=== PATIENT | male | born 1990 | race Caucasian/White ===

== ENCOUNTER → 2017-05-13 | Outpatient (CLI) | payer OTHER, MEDICAID ==
[2016-05-08 11:46] VITALS: BMI 22.4
[~2017-05-13] MED LIST: ABILIF5PT PO; CHOL10005 PO; DIPH-740 PO; FLUO-202 PO; HYDR25CA13 PO; HYDR50CA48 PO; IBUP800T37 PO; LOR5/325 PO; MULT-1379 PO; OLAN10TA21 PO; OLAN10TA25 PO; OLAN15TA19 PO; OMEG-23 PO; OXCA150T45 PO; OXCA150T47 PO; OXCA300T44 PO; PRED50TA22 PO; RISP1TAB79 PO; RISP2TAB70 PO; RISP3TAB55 PO; SERT-1 PO; SERT-181 PO; TOPI-120 PO; TOPI-28 PO; TOPI200T61 PO
[2017-05-13 12:32] LABS: LDL CHOLESTEROL 76 mg/dl
== END ==
LOC: LAB 11:55
PROVIDERS: ATTEND Psychiatry & Neurology Psychiatry
DX: Z51.81 Encounter for therapeutic drug level monitoring (principal); Z79.899 Other long term (current) drug therapy
CPT/HCPCS: 36415; 82040; 82247; 82306; 82310; 82374; 82435; 82465; 82565; 82947; 83036; 83718; 84075; 84132; 84155; 84295; 84450; 84460; 84478; 84520

== ENCOUNTER 2017-07-07 16:16 | Emergency (ER) | payer OTHER, MEDICAID ==
[2016-05-08 11:46] VITALS: Wt 99.8 kg
[2017-07-07 16:30] VITALS: BP 136/93
[2017-07-07] MEDS ORDERED: PARO-243 PO (16:37)
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
[2017-07-07 16:57] LABS: PLATELET COUNT, AUTOMATED 260 K/uL (150-450)
[2017-07-07] MEDS ORDERED: OLANZapine ZYDIS ODT 5MG TABDP PO ONE (17:00)
[2017-07-07] MEDS ORDERED: cloNIDine HCL 0.1 MG TAB PO ONE (17:15)
[2017-07-08] MEDS ORDERED: TOPI50TA92 PO (11:09)
[2017-07-08] MEDS ORDERED: [UNRECOGNIZED DRUG - CODE] PO (11:09)
[2017-07-08] MEDS ORDERED: CHOL10005 PO (11:09)
== END 2017-07-07 18:17 ==
LOC: ER 16:24
DX: F32.9 Major depressive disorder, single episode, unspecified (principal); R45.851 Suicidal ideations; F25.1 Schizoaffective disorder, depressive type; R44.0 Auditory hallucinations
CPT/HCPCS: 36415; 80183; 80201; 80305; 80320; 80329; 81001; 82040; 82247; 82310; 82374; 82435; 82565; 82947; 83735; 84075; 84132; 84155; 84295; 84443; 84450; 84460; 84520; 85025; 99285

== ENCOUNTER 2017-07-07 18:08 | Inpatient (IN) | payer OTHER, MEDICAID ==
[2016-05-08 11:46] VITALS: Ht 185.4 cm; Wt 113.4 kg
[~2017-07-07] VITALS: Ht 185.4 cm; Wt 113.4 kg
[~2017-07-07 18:08] MED LIST changes: +PARO-243 PO
[2017-07-07] MEDS ORDERED: MAG HYD/AL HYD/SIMETH 30ML UDC PO PRN (19:15)
[2017-07-07] MEDS: OLANZapine 5 MG TAB PO SCH (20:58)
[2017-07-07] MEDS: OXcarbazepine 300 MG TAB PO SCH (20:58)
[2017-07-07] MEDS: PARoxetine HCL 20 MG TAB PO SCH (20:58)
[2017-07-08 06:18] VITALS: BP 94/58
[2017-07-08] MEDS: MULTIVITAMINS PO SCH (08:16)
[2017-07-08] MEDS: CHOLECALCIFEROL 1000 UNIT TAB PO SCH (08:16)
[2017-07-08] MEDS: TOPIRAMATE 100 MG TAB PO SCH (08:17)
[2017-07-08] MEDS: OMEGA-3 500 MG CAP PO SCH (08:17)
[2017-07-08 10:22] VITALS: BP 126/67
[2017-07-08] MEDS ORDERED: TOPI50TA92 PO (11:09)
[2017-07-08] MEDS ORDERED: CHOL10005 PO (11:09)
[2017-07-08] MEDS ORDERED: [UNRECOGNIZED DRUG - CODE] PO (11:09)
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
[2017-07-08 19:01] VITALS: BP 132/88
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
[2017-07-08] MEDS: OXcarbazepine 300 MG TAB PO SCH (20:57)
[2017-07-08] MEDS: PARoxetine HCL 20 MG TAB PO SCH (20:57)
[2017-07-08] MEDS: OLANZapine 5 MG TAB PO SCH (20:57)
[2017-07-09 05:51] VITALS: BP 109/64
[2017-07-09] MEDS: MULTIVITAMINS PO SCH (08:23)
[2017-07-09] MEDS: OMEGA-3 500 MG CAP PO SCH (08:23)
[2017-07-09] MEDS: CHOLECALCIFEROL 1000 UNIT TAB PO SCH (08:24)
[2017-07-09] MEDS: TOPIRAMATE 100 MG TAB PO SCH (08:24)
[2017-07-09 09:05] VITALS: BP 108/72
--- NOTE | 2017-07-09 10:47 | BHS Progress Note ---
[facility] - Subjective Progress Notes Subjective Patient desires to discharge to home, notably difficulty and resistant to getting out of bed, and patient does not want to participate in care. Patient is in need of further residential care, as he is further decompensating at home , and having auditory hallucinations directing him to kill his child and . Patient having thoughts of harm to self as well. Will have hearing today for 10 day extension. Will continue same medications for now. Suicidal Ideation: Resolving Homicidal Ideation: Resolving BHS - Objective Physical Exam Vital Signs Vital Signs Date Time Temp Pulse Resp B/P (MAP) Pulse Ox O2 Delivery O2 Flow Rate FiO2 07/09/17 09:05 98.2 97 108/72 (84) 93 Room Air 07/09/17 05:51 15 Muscle Strength and Tone: WNL Gait and Station: Steady [facility] Medications Reviewed: Side Effects, Benefits of Medication, Risks Allergies Reviewed: Yes Mental Status Exam General Appearance: Good Eye Contact, Cooperative, Polite, No Psychomotor Agitation, Psychomotor Retardation, Bizarre Mannerisms Speech: Clear, Normal Rate, No Slurred, No Rambling, No Inappropriate Mood: Dysthmic/Depressed (thoughts of self harm) Affect: No Full and Appropriate, Neutral, Flat Thought Process: Goal Directed (wants to go home. ), No Loose Associations, No Flight of Ideas Thought Content: Suicidal Ideation (voices thoughts of hurting self at times. ) , Homicidal Ideation (Thoughts of hurting and baby yesterday with therapist.), Auditory Halllucinations (ongoing), No Thought Broadcasting, No Ideas of Reference, No Obsessions, No Compulsions Cognition: Alert & Oriented-Person, Alert & Oriented-Place, Alert & Oriented- Time, No Sulmh-Tykplcuy-Tuinpecxf (partially) Memory: Immediate, Recent, Remote Intelligence: Average Insight Judgment: Poor (worsening over sequence of admissions. ) [facility] Assessment and Plan Scak-ri-Ciks Encounter Date: Jul 09, 2017 Aokv-[id number] Encounter Time: 10:45 [facility] Plan: Necessary Precautions, Individual/Group Therapy, Admin/Titrate Meds, Educate Patient Tobacco Medications: Not Appropriate Condition Multpiple Antipsychotics Used: No Problems: (1) Autism spectrum disorder Status: Chronic (2) Schizoaffective disorder, depressive type Status: Chronic Condition 1. continue treatment. 2. hearing today. 3. no medication changes. 4. patient in need of treatment outside of his home. PENNY JOHN MD Jul 09, 2017 10:47
[2017-07-09] MEDS: OXcarbazepine 300 MG TAB PO SCH (22:11)
[2017-07-09] MEDS: OLANZapine 5 MG TAB PO SCH (22:11)
[2017-07-09] MEDS: PARoxetine HCL 20 MG TAB PO SCH (22:11)
[2017-07-10] MEDS: MULTIVITAMINS PO SCH (08:32)
[2017-07-10] MEDS: CHOLECALCIFEROL 1000 UNIT TAB PO SCH (08:32)
[2017-07-10] MEDS: TOPIRAMATE 100 MG TAB PO SCH (08:33)
[2017-07-10] MEDS: OMEGA-3 500 MG CAP PO SCH (08:33)
--- NOTE | 2017-07-10 09:57 | BHS Progress Note ---
[facility] - Subjective Progress Notes Subjective Patient cooperative today, interacting well with his Father in law on the phone , will continue same medications today, and start manager terminal planning after discharge, outside of current home environment. Patient denies any psychiatric concerns, but continues to regress, patient noted to be vomiting on dinner plate, without making an effort to move, or help himself, also notably patient was noted to have soiled his pants. Will continue to encourage growth and development, and avoidance of the sick role. No other concerns. Suicidal Ideation: Resolving Homicidal Ideation: None [facility] - Objective Physical Exam Vital Signs Vital Signs Date Time Temp Pulse Resp B/P (MAP) Pulse Ox O2 Delivery O2 Flow Rate FiO2 07/09/17 09:05 98.2 97 108/72 (84) 93 Room Air 07/09/17 05:51 15 Hematology Test 07/10/17 05:57 Triglycerides Level 239 mg/dl (0-250) Cholesterol Level 138 mg/dl (75-200) LDL Cholesterol 66 mg/dl VLDL Cholesterol 48 mg/dl HDL Cholesterol 24 mg/dl Percent HDL Cholesterol 17.0 % Cholesterol Ratio (LDL/HDL) 2.75 Cholesterol/HDL Ratio 5.8 Chemistry Test 07/10/17 05:57 Triglycerides Level 239 mg/dl (0-250) Cholesterol Level 138 mg/dl (75-200) LDL Cholesterol 66 mg/dl VLDL Cholesterol 48 mg/dl HDL Cholesterol 24 mg/dl Percent HDL Cholesterol 17.0 % Cholesterol Ratio (LDL/HDL) 2.75 Cholesterol/HDL Ratio 5.8 Muscle Strength and Tone: WNL Gait and Station: Steady [facility] Medications Reviewed: Side Effects, Benefits of Medication, Risks Allergies Reviewed: Yes Mental Status Exam General Appearance: Good Eye Contact, Cooperative, Polite, No Psychomotor Agitation, Psychomotor Retardation, Bizarre Mannerisms (stare) Speech: Clear, Normal Rate, No Slurred, No Rambling, No Inappropriate Mood: Dysthmic/Depressed (thoughts of self harm) Affect: No Full and Appropriate, Neutral, Flat Thought Process: Goal Directed (wants to go home. ), No Loose Associations, No Flight of Ideas Thought Content: Suicidal Ideation (voices thoughts of hurting self at times. ) , Homicidal Ideation (Thoughts of hurting and baby yesterday with therapist.), Auditory Halllucinations (ongoing), No Thought Broadcasting, No Ideas of Reference, No Obsessions, No Compulsions Cognition: Alert & Oriented-Person, Alert & Oriented-Place, Alert & Oriented- Time, No Kvsho-Qkqjbdoi-Djkwmqeef (partially) Memory: Immediate, Recent, Remote Intelligence: Average Insight Judgment: Poor (worsening over sequence of admissions. ) [facility] Assessment and Plan Eplj-rv-Xibc Encounter Date: Jul 10, 2017 Veza-ds-Nrdn Encounter Time: 09:40 [facility] Plan: Necessary Precautions, Individual/Group Therapy, Admin/Titrate Meds, Educate Patient Tobacco Medications: Not Appropriate Condition Multpiple Antipsychotics Used: No Problems: (1) Autism spectrum disorder Status: Chronic (2) Schizoaffective disorder, depressive type Status: Chronic Condition 1. no medication changes. 2. look into manager terminal treatment plans, away from current home environment. PENNY JOHN MD Jul 10, 2017 09:57
[2017-07-10 13:00] VITALS: BP 142/88
[2017-07-10 20:22] VITALS: BP 127/77
[2017-07-10] MEDS: OXcarbazepine 300 MG TAB PO SCH (21:48)
[2017-07-10] MEDS: OLANZapine 5 MG TAB PO SCH (21:48)
[2017-07-10] MEDS: PARoxetine HCL 20 MG TAB PO SCH (21:48)
[2017-07-11 06:00] VITALS: BP 103/60
[2017-07-11 07:00] VITALS: BP 103/60
[2017-07-11] MEDS: MULTIVITAMINS PO SCH (08:23)
[2017-07-11] MEDS: OMEGA-3 500 MG CAP PO SCH (08:23)
[2017-07-11] MEDS: CHOLECALCIFEROL 1000 UNIT TAB PO SCH (08:23)
[2017-07-11] MEDS: TOPIRAMATE 100 MG TAB PO SCH (08:23)
--- NOTE | 2017-07-11 10:16 | BHS Progress Note ---
BHS - Subjective Progress Notes Subjective "I was having a bad week, the voices were causing me stress." Last AH "a few days before I was admitted" states were reported to therapist who recommended admission Denies auditory/visual hallucinations, denies racing thoughts Denies depression, anxiety or anger Patient cooperative today, Will continue current medications Denies further psychiatric concerns Current Medications Medications (Trade) Dose Ordered Sig/Eugenio Route PRN Reason Start Time Stop Time Status Last Admin Dose Admin Al Hydrox/Mg Hydrox/Simethicone (Maalox(*) 30 ml Udcup (Or Equiv)) 30 ml Q4H PRN PO DYSPEPSIA 07/07/17 19:15 08/06/17 19:14 Multivitamins (Thera-M Enhanced Tab (Or Equiv)) 1 each QDAY PO 07/08/17 09:00 08/07/17 08:59 07/11/17 08:23 Olanzapine (zyPREXA (OR EQUIV)) 7.5 mg QHS PO 07/07/17 21:00 08/06/17 20:59 07/10/17 21:48 Paroxetine HCl (Paxil (Or Equiv)) 20 mg QHS PO 07/07/17 21:00 08/06/17 20:59 07/10/17 21:48 Oxcarbazepine (Trileptal 300 Mg Tab (Or Equiv)) 300 mg QHS PO 07/07/17 21:00 08/06/17 20:59 07/10/17 21:48 Topiramate (Topamax 100 Mg Tab (Or Equiv)) 150 mg QDAY PO 07/08/17 09:00 07/11/17 10:19 DC 07/11/17 08:23 Cholecalciferol (Vitamin D3 1000 Unit Tab) 4,000 unit QDAY PO 07/08/17 09:00 08/07/17 08:59 07/11/17 08:23 Ajzag-8-Bprh Ethyl Esters (Fish Oil 500 Mg Capsule) 1,000 mg QDAY PO 07/08/17 09:00 08/07/17 08:59 07/11/17 08:23 Topiramate (Topamax 100 Mg Tab (Or Equiv)) 150 mg QHS PO 07/12/17 21:00 08/07/17 08:59 Loperamide HCl (Imodium 2 Mg Cap (Or Equiv)) 2 mg PRN PRN PO DIARRHEA 07/11/17 10:20 08/10/17 10:19 Suicidal Ideation: None Homicidal Ideation: None Suicidal Ideation: None Homicidal Ideation: None [facility] - Objective Physical Exam Muscle Strength and Tone: WNL Gait and Station: Steady [facility] Medications Reviewed: Side Effects, Benefits of Medication, Risks Allergies Reviewed: Yes Mental Status Exam General Appearance: Good Eye Contact, Cooperative, Polite, No Psychomotor Agitation, No Psychomotor Retardation, No Bizarre Mannerisms (stare) Speech: Clear, Spontaneous, Normal Rate, Normal Rhythm, Normal Volume, Normal Tone, No Slurred, No Rambling, No Inappropriate Mood: Dysthmic/Depressed (thoughts of self harm), Euthymic Affect: Full and Appropriate, Calm, No Neutral, No Flat Thought Process: Goal Directed (discuss plans to live with father in law in [place] and continue follow up once there), No Loose Associations, No Flight of Ideas Thought Content: Suicidal Ideation (voices thoughts of hurting self at times. ) , Homicidal Ideation (Thoughts of hurting and baby yesterday with therapist.), Auditory Halllucinations (ongoing), No Thought Broadcasting, No Ideas of Reference, No Obsessions, No Compulsions Cognition: Alert & Oriented-Person, Alert & Oriented-Place, Alert & Oriented- Time, No Izmor-Rlffjoid-Curaqdncl (partially) Memory: Immediate, Recent, Remote Intelligence: Average Insight Judgment: Poor (worsening over sequence of admissions. ) Lab Current Medications Medications (Trade) Dose Ordered Sig/Eugenio Route PRN Reason Start Time Stop Time Status Last Admin Dose Admin Al Hydrox/Mg Hydrox/Simethicone (Maalox(*) 30 ml Udcup (Or Equiv)) 30 ml Q4H PRN PO DYSPEPSIA 07/07/17 19:15 08/06/17 19:14 Multivitamins (Thera-M Enhanced Tab (Or Equiv)) 1 each QDAY PO 07/08/17 09:00 08/07/17 08:59 07/11/17 08:23 Olanzapine (zyPREXA (OR EQUIV)) 7.5 mg QHS PO 07/07/17 21:00 08/06/17 20:59 07/10/17 21:48 Paroxetine HCl (Paxil (Or Equiv)) 20 mg QHS PO 07/07/17 21:00 08/06/17 20:59 07/10/17 21:48 Oxcarbazepine (Trileptal 300 Mg Tab (Or Equiv)) 300 mg QHS PO 07/07/17 21:00 08/06/17 20:59 07/10/17 21:48 Topiramate (Topamax 100 Mg Tab (Or Equiv)) 150 mg QDAY PO 07/08/17 09:00 08/07/17 08:59 07/11/17 08:23 Cholecalciferol (Vitamin D3 1000 Unit Tab) 4,000 unit QDAY PO 07/08/17 09:00 08/07/17 08:59 07/11/17 08:23 Zqmxt-4-Qxkn Ethyl Esters (Fish Oil 500 Mg Capsule) 1,000 mg QDAY PO 07/08/17 09:00 08/07/17 08:59 07/11/17 08:23 Vital Signs Date Time Temp Pulse Resp B/P (MAP) Pulse Ox O2 Delivery O2 Flow Rate FiO2 07/11/17 06:00 98.5 66 103/60 (74) 92 Room Air 07/10/17 13:00 16 Allergies Coded Allergies aripiprazole (Verified Allergy, Unknown, 02/04/17) asenapine (Verified Allergy, Unknown, 02/04/17) lurasidone (Verified Allergy, Unknown, 02/04/17) risperidone (Verified Allergy, Unknown, 02/04/17) fluoxetine (Verified Adverse Reaction, Mild, 02/04/17) lorazepam (Verified Adverse Reaction, Unknown, 02/04/17) S Assessment and Plan Arir-zu-Uxry Encounter Date: Jul 11, 2017 Qtef-ks-Pecl Encounter Time: 10:14 [facility] Plan: Necessary Precautions, Individual/Group Therapy, Admin/Titrate Meds, Educate Patient Tobacco Medications: Not Appropriate Condition Multpiple Antipsychotics Used: No Problems: (1) Schizoaffective disorder, depressive type Status: Chronic (2) Autism spectrum disorder Status: Chronic Condition Continue current medication and treatment Seeking appropriate discharge plan Maintain precautions TRACEE MEJIA NP Jul 11, 2017 10:16
[2017-07-11] MEDS: PARoxetine HCL 20 MG TAB PO SCH (21:37)
[2017-07-11] MEDS: OXcarbazepine 300 MG TAB PO SCH (21:37)
[2017-07-11] MEDS: OLANZapine 5 MG TAB PO SCH (21:37)
[2017-07-12 06:14] VITALS: BP 98/54
[2017-07-12] MEDS: OMEGA-3 500 MG CAP PO SCH (08:21)
[2017-07-12] MEDS: MULTIVITAMINS PO SCH (08:21)
[2017-07-12] MEDS: CHOLECALCIFEROL 1000 UNIT TAB PO SCH (08:21)
--- NOTE | 2017-07-12 09:14 | BHS Progress Note ---
[facility] - Subjective Progress Notes Subjective "I've been working on a workbook. It gives me an idea of where my emotions are. " Desires to gain employment in future, likes computers Rating depression, anxiety low Denies auditory/visual hallucinations, racing thoughts or mood swings Denies urge for self harm, suicidal or homicidal ideation Suicidal Ideation: None Homicidal Ideation: None [facility] - Objective Physical Exam Muscle Strength and Tone: WNL Gait and Station: Steady [facility] Medications Reviewed: Side Effects, Benefits of Medication, Risks Allergies Reviewed: Yes Mental Status Exam General Appearance: Good Eye Contact, Cooperative, Polite, No Psychomotor Agitation, No Psychomotor Retardation, No Bizarre Mannerisms (stare) Speech: Clear, Spontaneous, Normal Rate, Normal Rhythm, Normal Volume, Normal Tone, No Slurred, No Rambling, No Inappropriate Mood: Dysthmic/Depressed (denies thoughts of self harm), Euthymic Affect: Full and Appropriate, Calm, No Neutral, No Flat Thought Process: Goal Directed (discuss plans to live with father in law in [place] and continue follow up once there), No Loose Associations, No Flight of Ideas Thought Content: Suicidal Ideation (voices thoughts of hurting self at times. ) , Homicidal Ideation (Thoughts of hurting and baby yesterday with therapist.), Auditory Halllucinations (ongoing), No Thought Broadcasting, No Ideas of Reference, No Obsessions, No Compulsions Cognition: Alert & Oriented-Person, Alert & Oriented-Place, Alert & Oriented- Time, No Ipowc-Yivifzyt-Kxorszmhg (partially) Memory: Immediate, Recent, Remote Intelligence: Average Insight Judgment: Poor (worsening over sequence of admissions. ) Lab Vital Signs Date Time Temp Pulse Resp B/P (MAP) Pulse Ox O2 Delivery O2 Flow Rate FiO2 07/12/17 06:14 98.1 63 98/54 (69) 96 Room Air 07/11/17 07:00 18 Allergies Coded Allergies aripiprazole (Verified Allergy, Unknown, 02/04/17) asenapine (Verified Allergy, Unknown, 02/04/17) lurasidone (Verified Allergy, Unknown, 02/04/17) risperidone (Verified Allergy, Unknown, 02/04/17) fluoxetine (Verified Adverse Reaction, Mild, 02/04/17) lorazepam (Verified Adverse Reaction, Unknown, 02/04/17) [facility] Assessment and Plan Oean-kr-Pyem Encounter Date: Jul 12, 2017 Ecmi-sz-Agjf Encounter Time: 09:12 [facility] Plan: Necessary Precautions, Individual/Group Therapy, Admin/Titrate Meds, Educate Patient Tobacco Medications: Not Appropriate Condition Multpiple Antipsychotics Used: No Problems: (1) Schizoaffective disorder, depressive type Status: Chronic (2) Autism spectrum disorder Status: Chronic Condition Continue current medication and treatment Maintain precautions Treatment team 07/13/17 Taking active role in treatment TRACEE MEJIA NP Jul 12, 2017 09:14
[2017-07-12] MEDS: LOPERAMIDE HCL 2 MG CAP PO PRN ×2 (10:44→12:50)
[2017-07-12] MEDS ORDERED: TOPIRAMATE 100 MG TAB PO SCH (21:00)
[2017-07-12] MEDS: OXcarbazepine 300 MG TAB PO SCH (21:27)
[2017-07-12] MEDS: PARoxetine HCL 20 MG TAB PO SCH (21:27)
[2017-07-12] MEDS: TOPIRAMATE 100 MG TAB PO SCH (21:27)
[2017-07-12] MEDS: OLANZapine 5 MG TAB PO SCH (21:27)
[2017-07-13 06:18] VITALS: BP 121/61
[2017-07-13] MEDS: MULTIVITAMINS PO SCH (07:31)
[2017-07-13] MEDS: OMEGA-3 500 MG CAP PO SCH (07:31)
[2017-07-13] MEDS: CHOLECALCIFEROL 1000 UNIT TAB PO SCH (07:31)
--- NOTE | 2017-07-13 09:34 | BHS Progress Note ---
[facility] - Subjective Progress Notes Subjective Patient is now seemingly putting forth much effort into discharging to live with his in-laws. Patient continues to engage in manipulative behavior on the unit, but minimal overall. No self harm behaviors or aggression to others is noted on the unit. Patient no longer speaking of having voices. Father in law , and family, is aware of manipulative behaviors and is actively deciding if they are willing to have a trial of the patient residing with them for awhile. Patient is in need of a change of environment, as he continues to psychologically regress in current outpatient environment. Suicidal Ideation: None Homicidal Ideation: None [facility] - Objective Physical Exam Vital Signs Vital Signs Date Time Temp Pulse Resp B/P (MAP) Pulse Ox O2 Delivery O2 Flow Rate FiO2 07/13/17 06:18 98.8 53 15 121/61 (81) 94 Room Air Hematology Test 07/10/17 05:57 Triglycerides Level 239 mg/dl (0-250) Cholesterol Level 138 mg/dl (75-200) LDL Cholesterol 66 mg/dl VLDL Cholesterol 48 mg/dl HDL Cholesterol 24 mg/dl Percent HDL Cholesterol 17.0 % Cholesterol Ratio (LDL/HDL) 2.75 Cholesterol/HDL Ratio 5.8 Chemistry Test 07/10/17 05:57 Triglycerides Level 239 mg/dl (0-250) Cholesterol Level 138 mg/dl (75-200) LDL Cholesterol 66 mg/dl VLDL Cholesterol 48 mg/dl HDL Cholesterol 24 mg/dl Percent HDL Cholesterol 17.0 % Cholesterol Ratio (LDL/HDL) 2.75 Cholesterol/HDL Ratio 5.8 Muscle Strength and Tone: WNL Gait and Station: Steady [facility] Medications Reviewed: Side Effects, Benefits of Medication, Risks Allergies Reviewed: Yes Mental Status Exam General Appearance: Good Eye Contact, Cooperative, Polite, No Psychomotor Agitation, No Psychomotor Retardation, No Bizarre Mannerisms (stare) Speech: Clear, Spontaneous, Normal Rate, Normal Rhythm, Normal Volume, Normal Tone, No Slurred, No Rambling, No Inappropriate Mood: Euthymic Affect: Full and Appropriate, Calm, No Neutral, No Flat, No Tearful, No Anxious , No Agitated Thought Process: Goal Directed (discuss plans to live with father in law in [place] and continue follow up once there), No Loose Associations, No Flight of Ideas Thought Content: Suicidal Ideation (voices thoughts of hurting self at times. ) , Homicidal Ideation (denies today), Auditory Halllucinations (ongoing), No Thought Broadcasting, No Ideas of Reference, No Obsessions, No Compulsions Sensorium: Clear Cognition: Alert & Oriented-Person, Alert & Oriented-Place, Alert & Oriented- Time, No Jadab-Qtixpmnc-Psdqydoqk (partially) Memory: Immediate, Recent, Remote Intelligence: Average Insight Judgment: Poor (worsening over sequence of admissions. psychological regression continues) [facility] Assessment and Plan Fbik-bt-Ocxv Encounter Date: Jul 13, 2017 Bqcn-qd-Mbxb Encounter Time: 08:40 [facility] Plan: Necessary Precautions, Individual/Group Therapy, Admin/Titrate Meds, Educate Patient Tobacco Medications: Not Appropriate Condition Multpiple Antipsychotics Used: No Problems: (1) Autism spectrum disorder Status: Chronic (2) Schizoaffective disorder, depressive type Status: Chronic Condition 1. continue treatment. 2. no medication changes today. 3. look into potential discharge plans. PENNY JOHN MD Jul 13, 2017 09:34
[2017-07-13] MEDS: OLANZapine 5 MG TAB PO SCH (21:37)
[2017-07-13] MEDS: OXcarbazepine 300 MG TAB PO SCH (21:38)
[2017-07-13] MEDS: TOPIRAMATE 100 MG TAB PO SCH (21:38)
[2017-07-13] MEDS: PARoxetine HCL 20 MG TAB PO SCH (21:38)
[2017-07-14 06:18] VITALS: BP 92/56
[2017-07-14] MEDS: OMEGA-3 500 MG CAP PO SCH (08:19)
[2017-07-14] MEDS: MULTIVITAMINS PO SCH (08:21)
[2017-07-14] MEDS: CHOLECALCIFEROL 1000 UNIT TAB PO SCH (08:21)
--- NOTE | 2017-07-14 12:16 | BHS Progress Note ---
[facility] - Subjective Progress Notes Subjective Patient taking a more active role in his treatment, notably exercising some today. Patient responds to motivating influences, which are necessary to promote growth in this patient who has been regressing from previous levels of attainment for quite sometime now. Will continue to pursue plans to have patient leave current home environment for a time. These will likely include patient moving to live with father in law. Patient now denies any form of psychiatric complaint. No seizure behavior or para-suicidal behavior seen on the unit. No aggression toward staff or other patients. Suicidal Ideation: None Homicidal Ideation: None S - Objective Physical Exam Vital Signs Vital Signs Date Time Temp Pulse Resp B/P (MAP) Pulse Ox O2 Delivery O2 Flow Rate FiO2 07/14/17 06:18 98.1 54 15 92/56 (68) 93 Room Air Hematology Test 07/10/17 05:57 Triglycerides Level 239 mg/dl (0-250) Cholesterol Level 138 mg/dl (75-200) LDL Cholesterol 66 mg/dl VLDL Cholesterol 48 mg/dl HDL Cholesterol 24 mg/dl Percent HDL Cholesterol 17.0 % Cholesterol Ratio (LDL/HDL) 2.75 Cholesterol/HDL Ratio 5.8 Chemistry Test 07/10/17 05:57 Triglycerides Level 239 mg/dl (0-250) Cholesterol Level 138 mg/dl (75-200) LDL Cholesterol 66 mg/dl VLDL Cholesterol 48 mg/dl HDL Cholesterol 24 mg/dl Percent HDL Cholesterol 17.0 % Cholesterol Ratio (LDL/HDL) 2.75 Cholesterol/HDL Ratio 5.8 Muscle Strength and Tone: WNL Gait and Station: Steady [facility] Medications Reviewed: Side Effects, Benefits of Medication, Risks Allergies Reviewed: Yes Mental Status Exam General Appearance: Casual, Good Eye Contact, Cooperative, Polite, No Psychomotor Agitation, No Psychomotor Retardation, No Bizarre Mannerisms (stare) Speech: Clear, Spontaneous, Normal Rate, Normal Rhythm, Normal Volume, Normal Tone, No Slurred, No Rambling, No Inappropriate Mood: Euthymic Affect: Full and Appropriate, Calm, No Neutral, No Flat, No Tearful, No Anxious , No Agitated Thought Process: Organized, Goal Directed (discuss plans to live with father in law in [place] and continue follow up once there), No Loose Associations , No Flight of Ideas Thought Content: Suicidal Ideation (voices thoughts of hurting self at times. ) , Homicidal Ideation (denies today), Auditory Halllucinations (now denies. ), No Thought Broadcasting, No Ideas of Reference, No Obsessions, No Compulsions Sensorium: Clear Cognition: Alert & Oriented-Person, Alert & Oriented-Place, Alert & Oriented- Time, No Lhwmx-Qgaakrrb-Sqzqagbbw (partially) Memory: Immediate, Recent, Remote Intelligence: Average Insight Judgment: Poor (worsening over sequence of admissions. psychological regression continues) [facility] Assessment and Plan Qdvj-qk-Hbqy Encounter Date: Jul 14, 2017 Xdps-rc-Rhve Encounter Time: 11:30 [facility] Plan: Necessary Precautions, Individual/Group Therapy, Admin/Titrate Meds, Educate Patient Tobacco Medications: Not Appropriate Condition Multpiple Antipsychotics Used: No Problems: (1) Autism spectrum disorder Status: Chronic (2) Schizoaffective disorder, depressive type Status: Chronic Condition 1. continue treatment. 2. solidify plans for discharge, hopefully later this week. PENNY JOHN MD Jul 14, 2017 12:16
[2017-07-14] MEDS: OLANZapine 5 MG TAB PO SCH (21:03)
[2017-07-14] MEDS: PARoxetine HCL 20 MG TAB PO SCH (21:03)
[2017-07-14] MEDS: TOPIRAMATE 100 MG TAB PO SCH (21:03)
[2017-07-14] MEDS: OXcarbazepine 300 MG TAB PO SCH (21:03)
[2017-07-15 05:53] VITALS: BP 98/55
[2017-07-15] MEDS: OMEGA-3 500 MG CAP PO SCH (08:19)
[2017-07-15] MEDS: CHOLECALCIFEROL 1000 UNIT TAB PO SCH (08:19)
[2017-07-15] MEDS: MULTIVITAMINS PO SCH (08:19)
--- NOTE | 2017-07-15 11:10 | BHS Progress Note ---
[facility] - Subjective Progress Notes Subjective Patient continues to take an active role in his treatment, denies any symptoms of psychiatric concern today, will continue to plan for discharge to care of Father in law in [place]. Patient noted to be interacting well with father in Law on phone. Appetite and sleep good. Patient reports good mood and free of psychosis. Suicidal Ideation: None Homicidal Ideation: None [facility] - Objective Physical Exam Vital Signs Vital Signs Date Time Temp Pulse Resp B/P (MAP) Pulse Ox O2 Delivery O2 Flow Rate FiO2 07/15/17 05:53 98.7 52 15 98/55 (69) 95 Room Air Hematology Test 07/10/17 05:57 Triglycerides Level 239 mg/dl (0-250) Cholesterol Level 138 mg/dl (75-200) LDL Cholesterol 66 mg/dl VLDL Cholesterol 48 mg/dl HDL Cholesterol 24 mg/dl Percent HDL Cholesterol 17.0 % Cholesterol Ratio (LDL/HDL) 2.75 Cholesterol/HDL Ratio 5.8 Chemistry Test 07/10/17 05:57 Triglycerides Level 239 mg/dl (0-250) Cholesterol Level 138 mg/dl (75-200) LDL Cholesterol 66 mg/dl VLDL Cholesterol 48 mg/dl HDL Cholesterol 24 mg/dl Percent HDL Cholesterol 17.0 % Cholesterol Ratio (LDL/HDL) 2.75 Cholesterol/HDL Ratio 5.8 Muscle Strength and Tone: WNL Gait and Station: Steady [facility] Medications Reviewed: Side Effects, Benefits of Medication, Risks Allergies Reviewed: Yes Mental Status Exam General Appearance: Casual, Good Eye Contact, Cooperative, Polite, Good Interaction, No Psychomotor Agitation, No Psychomotor Retardation, No Bizarre Mannerisms (stare) Speech: Clear, Spontaneous, Normal Rate, Normal Rhythm, Normal Volume, Normal Tone, No Slurred, No Rambling, No Inappropriate Mood: Euthymic Affect: Full and Appropriate, Calm, No Neutral, No Flat, No Tearful, No Anxious , No Agitated Thought Process: Organized, Goal Directed (discuss plans to live with father in law in [place] and continue follow up once there), No Loose Associations , No Flight of Ideas Thought Content: Suicidal Ideation (denies today), Homicidal Ideation (denies today), Auditory Halllucinations (now denies. ), No Thought Broadcasting, No Ideas of Reference, No Obsessions, No Compulsions Sensorium: Clear Cognition: Alert & Oriented-Person, Alert & Oriented-Place, Alert & Oriented- Time, No Kksly-Ovigsxlc-Peitpptnm (partially) Memory: Immediate, Recent, Remote Intelligence: Average Insight Judgment: Poor (worsening over sequence of admissions. psychological regression continues) [facility] Assessment and Plan Xgjn-tr-Ymot Encounter Date: Jul 15, 2017 Hqnj-ih-Pihx Encounter Time: 08:40 [facility] Plan: Necessary Precautions, Individual/Group Therapy, Admin/Titrate Meds, Educate Patient Tobacco Medications: Not Appropriate Condition Multpiple Antipsychotics Used: No Problems: (1) Autism spectrum disorder Status: Chronic (2) Schizoaffective disorder, depressive type Status: Chronic Condition 1. continue treatment. 2. possible discharge on Thursday PENNY JOHN MD Jul 15, 2017 11:10
[2017-07-15] MEDS: TOPIRAMATE 100 MG TAB PO SCH (21:09)
[2017-07-15] MEDS: PARoxetine HCL 20 MG TAB PO SCH (21:09)
[2017-07-15] MEDS: OLANZapine 5 MG TAB PO SCH (21:09)
[2017-07-15] MEDS: OXcarbazepine 300 MG TAB PO SCH (21:09)
[2017-07-16 06:21] VITALS: BP 110/62
[2017-07-16] MEDS: OMEGA-3 500 MG CAP PO SCH (08:15)
[2017-07-16] MEDS: CHOLECALCIFEROL 1000 UNIT TAB PO SCH (08:15)
[2017-07-16] MEDS: MULTIVITAMINS PO SCH (08:15)
[2017-07-16 11:16] VITALS: BP 114/84
--- NOTE | 2017-07-16 12:24 | BHS Progress Note ---
[facility] - Subjective Progress Notes Subjective Patient continues to put forth effort on the unit, regarding his care, and indicates an understanding of the need to push himself, so that regression does not take over. Patient denies any psychiatric symptoms, is alert and oriented, and cooperative on the unit. No other concerns today, will continue to plan for discharge into care of father in law, with court in support of monitored outpatient services. Suicidal Ideation: None Homicidal Ideation: None [facility] - Objective Physical Exam Vital Signs Vital Signs Date Time Temp Pulse Resp B/P (MAP) Pulse Ox O2 Delivery O2 Flow Rate FiO2 07/16/17 11:16 99.2 100 114/84 (94) Room Air 07/16/17 06:21 15 92 Hematology Test 07/10/17 05:57 Triglycerides Level 239 mg/dl (0-250) Cholesterol Level 138 mg/dl (75-200) LDL Cholesterol 66 mg/dl VLDL Cholesterol 48 mg/dl HDL Cholesterol 24 mg/dl Percent HDL Cholesterol 17.0 % Cholesterol Ratio (LDL/HDL) 2.75 Cholesterol/HDL Ratio 5.8 Chemistry Test 07/10/17 05:57 Triglycerides Level 239 mg/dl (0-250) Cholesterol Level 138 mg/dl (75-200) LDL Cholesterol 66 mg/dl VLDL Cholesterol 48 mg/dl HDL Cholesterol 24 mg/dl Percent HDL Cholesterol 17.0 % Cholesterol Ratio (LDL/HDL) 2.75 Cholesterol/HDL Ratio 5.8 Muscle Strength and Tone: WNL Gait and Station: Steady [facility] Medications Reviewed: Side Effects, Benefits of Medication, Risks Allergies Reviewed: Yes Mental Status Exam General Appearance: Casual, Well Groomed, Good Eye Contact, Cooperative, Polite , Good Interaction, No Psychomotor Agitation, No Psychomotor Retardation, No Bizarre Mannerisms (stare) Speech: Clear, Spontaneous, Normal Rate, Normal Rhythm, Normal Volume, Normal Tone, No Slurred, No Rambling, No Inappropriate Mood: Euthymic Affect: Full and Appropriate, Calm, No Neutral, No Flat, No Tearful, No Anxious , No Agitated Thought Process: Organized, Goal Directed (discuss plans to live with father in law in [place] and continue follow up once there), No Loose Associations , No Flight of Ideas Thought Content: Suicidal Ideation (denies today), Homicidal Ideation (denies today), Auditory Halllucinations (now denies. ), No Thought Broadcasting, No Ideas of Reference, No Obsessions, No Compulsions Sensorium: Clear Cognition: Alert & Oriented-Person, Alert & Oriented-Place, Alert & Oriented- Time, No Zqiyl-Epaiwqtp-Lnamknfxo (partially) Memory: Immediate, Recent, Remote Intelligence: Average Insight Judgment: Poor (worsening over sequence of admissions. psychological regression continues) [facility] Assessment and Plan Hclc-xi-Jrke Encounter Date: Jul 16, 2017 Qenv-lg-Ignd Encounter Time: 10:00 [facility] Plan: Necessary Precautions, Individual/Group Therapy, Admin/Titrate Meds, Educate Patient Tobacco Medications: Not Appropriate Condition Multpiple Antipsychotics Used: No Problems: (1) Autism spectrum disorder Status: Chronic (2) Schizoaffective disorder, depressive type Status: Chronic Condition 1. continue treatment. 2. plan for discharge to father in law. PENNY JOHN MD Jul 16, 2017 12:24
[2017-07-16] MEDS: PARoxetine HCL 20 MG TAB PO SCH (21:20)
[2017-07-16] MEDS: OXcarbazepine 300 MG TAB PO SCH (21:20)
[2017-07-16] MEDS: OLANZapine 5 MG TAB PO SCH (21:21)
[2017-07-16] MEDS: TOPIRAMATE 100 MG TAB PO SCH (21:21)
[2017-07-17] MEDS: MULTIVITAMINS PO SCH (08:10)
[2017-07-17] MEDS: OMEGA-3 500 MG CAP PO SCH (08:10)
[2017-07-17] MEDS: CHOLECALCIFEROL 1000 UNIT TAB PO SCH (08:10)
--- NOTE | 2017-07-17 09:10 | BHS Progress Note ---
[facility] - Subjective Progress Notes Subjective Patient remains alert and oriented indicating, and verbalizing a full understanding of his discharge plans to take place on Thursday, necessary follow up, and a full understanding of current medications. Sleep,and appetite good, patient denies any symptoms, of psychosis, or depression. Patient denies any other psychiatric concerns. Suicidal Ideation: None Homicidal Ideation: None [facility] - Objective Physical Exam Vital Signs Hematology Test 07/10/17 05:57 Triglycerides Level 239 mg/dl (0-250) Cholesterol Level 138 mg/dl (75-200) LDL Cholesterol 66 mg/dl VLDL Cholesterol 48 mg/dl HDL Cholesterol 24 mg/dl Percent HDL Cholesterol 17.0 % Cholesterol Ratio (LDL/HDL) 2.75 Cholesterol/HDL Ratio 5.8 Chemistry Test 07/10/17 05:57 Triglycerides Level 239 mg/dl (0-250) Cholesterol Level 138 mg/dl (75-200) LDL Cholesterol 66 mg/dl VLDL Cholesterol 48 mg/dl HDL Cholesterol 24 mg/dl Percent HDL Cholesterol 17.0 % Cholesterol Ratio (LDL/HDL) 2.75 Cholesterol/HDL Ratio 5.8 Vital Signs Date Time Temp Pulse Resp B/P (MAP) Pulse Ox O2 Delivery O2 Flow Rate FiO2 07/16/17 11:16 99.2 100 114/84 (94) Room Air 07/16/17 06:21 15 92 Muscle Strength and Tone: WNL Gait and Station: Steady [facility] Medications Reviewed: Side Effects, Benefits of Medication, Risks Allergies Reviewed: Yes Mental Status Exam General Appearance: Casual, Well Groomed, Good Eye Contact, Cooperative, Polite , Good Interaction, No Psychomotor Agitation, No Psychomotor Retardation, No Bizarre Mannerisms (stare) Speech: Clear, Spontaneous, Normal Rate, Normal Rhythm, Normal Volume, Normal Tone, No Slurred, No Rambling, No Inappropriate Mood: Euthymic Affect: Full and Appropriate, Calm, No Neutral, No Flat, No Tearful, No Anxious , No Agitated Thought Process: Organized, Goal Directed (discuss plans to live with father in law in [place] and continue follow up once there), No Loose Associations , No Flight of Ideas Thought Content: Suicidal Ideation (denies today), Homicidal Ideation (denies today), Auditory Halllucinations (now denies. ), No Thought Broadcasting, No Ideas of Reference, No Obsessions, No Compulsions Sensorium: Clear Cognition: Alert & Oriented-Person, Alert & Oriented-Place, Alert & Oriented- Time, No Iawcl-Pbdzpklz-Qvmrxnjtn (partially) Memory: Immediate, Recent, Remote Intelligence: Average Insight Judgment: Poor (worsening over sequence of admissions. psychological regression continues) [facility] Assessment and Plan Pryu-ic-Kfti Encounter Date: Jul 17, 2017 Wrok-ns-Acpe Encounter Time: 08:40 [facility] Plan: Necessary Precautions, Individual/Group Therapy, Admin/Titrate Meds, Educate Patient Tobacco Medications: Not Appropriate Condition Multpiple Antipsychotics Used: No Problems: (1) Autism spectrum disorder Status: Chronic (2) Schizoaffective disorder, depressive type Status: Chronic Condition 1. plan for discharge on Thursday, to care of Father in Law in [place]. 2. No medication changes. 3. solidify court documents for directed outpatient commitment. PENNY JOHN MD Jul 17, 2017 09:10
[2017-07-17 18:55] VITALS: BP 124/84
[2017-07-17] MEDS: TOPIRAMATE 100 MG TAB PO SCH (21:36)
[2017-07-17] MEDS: OXcarbazepine 300 MG TAB PO SCH (21:36)
[2017-07-17] MEDS: PARoxetine HCL 20 MG TAB PO SCH (21:36)
[2017-07-17] MEDS: OLANZapine 5 MG TAB PO SCH (21:36)
[2017-07-18] MEDS: OMEGA-3 500 MG CAP PO SCH (08:28)
[2017-07-18] MEDS: CHOLECALCIFEROL 1000 UNIT TAB PO SCH (08:28)
[2017-07-18] MEDS: MULTIVITAMINS PO SCH (08:28)
--- NOTE | 2017-07-18 09:52 | BHS Progress Note ---
[facility] - Subjective Progress Notes Subjective "Good. I had a panic attack last night." Rates depression, anger, anxiety, SI a zero this morning. Suicidal Ideation: None Homicidal Ideation: None [facility] - Objective Physical Exam Vital Signs Vital Signs 07/17/17 18:55 Temp 99.9 Pulse 94 Resp 16 B/P (MAP) 124/84 (97) Pulse Ox 94 O2 Delivery Room Air Muscle Strength and Tone: WNL Gait and Station: Steady S Medications Reviewed: Side Effects, Benefits of Medication, Risks Allergies Reviewed: Yes Mental Status Exam General Appearance: Casual, Well Groomed, Good Eye Contact, Cooperative, Polite , Good Interaction, No Psychomotor Agitation, No Psychomotor Retardation, No Bizarre Mannerisms (stare) Speech: Clear, Spontaneous, Normal Rate, Normal Rhythm, Normal Volume, Normal Tone, No Slurred, No Rambling, No Inappropriate Mood: Euthymic Affect: Full and Appropriate, Calm, No Neutral, No Flat, No Tearful, No Anxious , No Agitated Thought Process: Organized, Goal Directed (discuss plans to live with father in law in [place] and continue follow up once there), No Loose Associations , No Flight of Ideas Thought Content: Suicidal Ideation (denies today), Homicidal Ideation (denies today), Auditory Halllucinations (now denies. ), No Thought Broadcasting, No Ideas of Reference, No Obsessions, No Compulsions Sensorium: Clear Cognition: Alert & Oriented-Person, Alert & Oriented-Place, Alert & Oriented- Time, No Zxowq-Fyrvetfl-Ucfiwfmyr (partially) Memory: Immediate, Recent, Remote Intelligence: Average Insight Judgment: Poor (worsening over sequence of admissions. psychological regression continues) [facility] Assessment and Plan Xkjt-cl-Rlkf Encounter Date: Jul 18, 2017 Hysm-yo-Aslt Encounter Time: 09:40 [facility] Plan: Necessary Precautions, Individual/Group Therapy, Admin/Titrate Meds, Educate Patient Tobacco Medications: Not Appropriate Condition Multpiple Antipsychotics Used: No Problems: (1) Schizoaffective disorder, depressive type Status: Chronic (2) Autism spectrum disorder Status: Chronic ZACHERY LEGER NP Jul 18, 2017 09:52
[2017-07-18 13:25] VITALS: BP 132/82
[2017-07-18] MEDS: PARoxetine HCL 20 MG TAB PO SCH (21:02)
[2017-07-18] MEDS: OXcarbazepine 300 MG TAB PO SCH (21:02)
[2017-07-18] MEDS: TOPIRAMATE 100 MG TAB PO SCH (21:02)
[2017-07-18] MEDS: OLANZapine 5 MG TAB PO SCH (21:03)
[2017-07-19] MEDS: MULTIVITAMINS PO SCH (08:10)
[2017-07-19] MEDS: OMEGA-3 500 MG CAP PO SCH (08:10)
[2017-07-19] MEDS: CHOLECALCIFEROL 1000 UNIT TAB PO SCH (08:10)
[2017-07-19 09:27] VITALS: BP 119/70
--- NOTE | 2017-07-21 14:08 | DISCHARGE SUMMARY ---
Date met with patient, July 19, 2017. Met with patient at 9:30 a.m. DIAGNOSES PER DSM-V Schizoaffective disorder. Autism. REASON FOR ADMISSION Patient was admitted to the unit on an emergency mcc after he reported having auditory hallucinations with thoughts of hurting his and baby, as well as suicidal ideation. PHYSICAL EXAMINATION GENERAL: Please see emergency room note for complete review of systems. VITAL SIGNS: On the day of discharge include temperature 98.8, pulse 83, respiratory rate 16, blood pressure 119/70, pulse oximetry 94% on room air. LABORATORY DATA CBC and CMP were both unremarkable. Toxicology screen negative. Negative for alcohol, salicylates or acetaminophen. MENTAL STATUS EXAMINATION GENERAL APPEARANCE, BEHAVIOR AND ATTITUDE: A 26-year-old male who appears his stated age. Grooming is fair. He is dressed in hospital scrubs when interviewed, as per policy. SPEECH: Normal rate, rhythm and volume. MOOD: Described as good. AFFECT: Blunted, as per his baseline. THOUGHT PROCESSES: Logical and goal directed. No loose associations or flight of ideas. THOUGHT CONTENT: He is denying any suicidal ideation. He denies homicidal ideation. He denies auditory or visual hallucinations today during interview. SENSORIUM: Clear. COGNITION: He is alert and oriented to person, place, time and situation. MEMORY: Immediate, recent and remote estimated grossly intact. INTELLIGENCE: Average based on interview. INSIGHT AND JUDGMENT: Fair. He acknowledges that he has mental illness and that he needs assistance with followup and outpatient care. TREATMENT Patient received medications and participated in individual,group and milieu therapy, and psychoeducation. HOSPITAL COURSE Patient was cooperative during his stay. Medications adjusted without incident. CONDITION OF PATIENT ON DISCHARGE Considered stable and a minimal risk to himself and others, appropriate for outpatient management, as per his outpatient suspended commitment per the courts. DISPOSITION Patient was discharged to home in the care of his uwnrju-nu-cnd. He is to follow up with [facility] in [place], [place], which is where he is going to live with his sywrdu-ut-jhg. Patient was discharged on the following medications: 1. Topamax 100 mg at bedtime. 2. Swengel-3 1000 mg daily. 3. Vitamin D3 5000 international units daily. 4. Oxcarbazepine 300 mg at bedtime. 5. Paxil 20 mg daily. 6. Olanzapine 7.5 mg at bedtime. The 24-hour crisis line number was provided should symptoms or problems return. The risks, benefits and alternatives of the above discharge plan were discussed with client. Informed consent was given to proceed with above discharge plan by this competent patient. RACHAEL
== END 2017-07-19 12:00 | disposition home or self-care (01) | DRG 885 ==
LOC: BHS 18:08
PROVIDERS: ADMIT Psychiatry & Neurology Psychiatry; ATTEND Psychiatry & Neurology Psychiatry
DX: F25.1 Schizoaffective disorder, depressive type (principal); R45.851 Suicidal ideations; F84.0 Autistic disorder; R45.850 Homicidal ideations; G40.909 Epilepsy, unspecified, not intractable, without status epilepticus; Z81.8 Family history of other mental and behavioral disorders; Z63.79 Other stressful life events affecting family and household
CPT/HCPCS: 36415; 82465; 83718; 84478; 90853